=== PATIENT | male | born 1985 | race African-American/Black ===

== ENCOUNTER 2019-08-25 00:32 | Emergency (ER) | payer SELFPAY ==
[~2019-08-25] VITALS: Ht 177.8 cm; Wt 77.0 kg
[2019-08-25] MEDS ORDERED: LORAZEPAM 2MG/ML CPJ IM ONE (01:30)
[2019-08-25] MEDS ORDERED: OLANZAPINE 10 MG/VIAL IM ONE (01:45)
[2019-08-25 02:53] LABS: BASOPHILS % 1.1 % (0.0-2.0); EOSINOPHILS % 0.4 % (0.0-5.0); HEMATOCRIT. 44.8 % (42.0-52.0); HEMOGLOBIN. 15.2 g/dL (14.0-18.0); LYMPHOCYTES % 17.7 % (20.0-50.0); MEAN CORPUSCULAR VOLUME 85.5 fL (80.0-94.0); MEAN PLATELET VOLUME 8.6 fl (7.4-10.4); MONOCYTES % 13.1 % (2.0-8.0); NEUTROPHILS % 67.7 % (40.0-76.0); PLATELET 232 x1000/uL (130-400); RED BLOOD CELL COUNT 5.24 mill/uL (4.7-6.1); RED CELL DISTRIBUTION WIDTH 14.1 % (11.6-14.6)
[2019-08-25 02:56] LABS: CHLORIDE 108 mEq/L (98-107)
[2019-08-25 03:01] LABS: ETHANOL BLOOD < 10 mg/dL
[2019-08-25 03:05] LABS: CREATINE KINASE 930 IU/L (39-308)
[2019-08-25 03:07] LABS: CLARITY URINE CLOUDY (CLEAR); COLOR URINE DARK YELLOW (YELLOW); KETONES URINE 2+ (NEGATIVE); LEUKOCYTE ESTERASE URINE NEGATIVE (NEGATIVE); NITRITE URINE NEGATIVE (NEGATIVE); OCCULT BLOOD URINE 2+ (NEGATIVE); PROTEIN URINE 2+ (NEGATIVE); SPECIFIC GRAVITY URINE 1.039 (1.005-1.030)
[2019-08-25 03:19] LABS: *AMPHETAMINES SCREEN URINE PRESUMTIVE POSITIVE (NEGATIVE); CANNABINOID URINE SCREEN PRESUMTIVE POSITIVE (NEGATIVE); METHADONE URINE SCREEN NEGATIVE (NEGATIVE); OPIATES URINE SCREEN NEGATIVE (NEGATIVE); PHENCYCLIDINE URINE SCREEN NEGATIVE (NEGATIVE)
[2019-08-25 03:20] LABS: *BARBITURATES SCREEN URINE NEGATIVE (NEGATIVE); *BENZODIAZEPINES SCREEN URINE NEGATIVE (NEGATIVE); *COCAINE SCREEN URINE PRESUMTIVE POSITIVE (NEGATIVE)
[2019-08-25] MEDS ORDERED: SODIUM CHLORIDE 0.9% 1,000 ML IV ONE (04:27)
[2019-08-25] MEDS ORDERED: CEFTRIAXONE 1 G PREMIX 50 ML IV SCH (04:30)
[2019-08-25 05:59] LABS: CREATINE KINASE 853 IU/L (39-308)
[2019-08-25 07:30] VITALS: BP 108/63
== END 2019-08-25 08:46 | disposition home or self-care (01) ==
LOC: ER 00:32
DX: F23 Brief psychotic disorder (principal); F19.10 Other psychoactive substance abuse, uncomplicated; N39.0 Urinary tract infection, site not specified; R74.8 Abnormal levels of other serum enzymes
CPT/HCPCS: 36415; 80053; 80305; 80320; 81003; 82550; 83880; 84484; 85025; 93005; 96365; 96372; 99284; J0696; J2060; J3490; Z7610; G0480

== ENCOUNTER 2019-09-16 16:14 | Emergency (ER) | payer OTHER ==
[~2019-09-16] VITALS: Ht 172.7 cm; Wt 70.0 kg
[2019-09-16 16:16] VITALS: BP 137/78
== END 2019-09-16 21:06 | disposition left against medical advice (07) ==
LOC: ER 16:14
DX: Z53.21 Procedure and treatment not carried out due to patient leaving prior to being seen by health care provider (principal)

== ENCOUNTER 2020-03-05 06:56 | Emergency (ER) | payer MEDICAID, OTHER ==
[~2020-03-05] VITALS: Ht 170.2 cm; Wt 74.0 kg
[2020-03-05] MEDS ORDERED: IBUPROFEN 600MG TABLET PO ONE (09:15)
[2020-03-05 10:26] LABS: CLARITY URINE CLEAR (CLEAR); COLOR URINE YELLOW (YELLOW); KETONES URINE 1+ (NEGATIVE); LEUKOCYTE ESTERASE URINE NEGATIVE (NEGATIVE); NITRITE URINE NEGATIVE (NEGATIVE); OCCULT BLOOD URINE NEGATIVE (NEGATIVE); PROTEIN URINE TRACE (NEGATIVE); SPECIFIC GRAVITY URINE 1.015 (1.005-1.030)
[2020-03-05 11:50] VITALS: BP 145/94
[2020-03-07 04:06] LABS: NEISSERIA GONORRHOEAE NAA Negative (Negative)
== END 2020-03-05 11:51 | disposition home or self-care (01) ==
LOC: ER 06:56
DX: K40.90 Unilateral inguinal hernia, without obstruction or gangrene, not specified as recurrent (principal); F15.20 Other stimulant dependence, uncomplicated
CPT/HCPCS: 76870; 81003; 87491; 87591; 93976; 99284